=== PATIENT | male | born 2000 | race Caucasian/White ===

== ENCOUNTER 2020-07-23 20:42 | Emergency (ER) | payer BC ==
[2020-07-23] MEDS ORDERED: Lorazepam 2 MG/ML VIAL ONE (21:00)
[2020-07-23] MEDS ORDERED: Azithromycin 250 MG TAB ONE (21:09)
== END 2020-07-23 21:43 | disposition home or self-care (01) ==
LOC: ERS 20:42
DX: F41.1 Generalized anxiety disorder (principal)
CPT/HCPCS: 96372; 99284; J2060

== ENCOUNTER 2021-02-10 01:45 | Emergency (ER) | payer BC | END 2021-02-10 03:58 | disposition home or self-care (01) | LOC: ERS 01:45 | DX: R09.89 Other specified symptoms and signs involving the circulatory and respiratory systems (principal) | CPT/HCPCS: 70360 ==